=== PATIENT | male | born 1985 | race Caucasian/White ===

== ENCOUNTER 2024-02-06 01:02 | Emergency (ER) | payer MEDICAID ==
[~2024-02-06] VITALS: Ht 172.7 cm; Wt 100.0 kg
[2024-02-06 01:03] VITALS: O2SAT 97
[2024-02-06 01:30] VITALS: BP 136/75; PULSE 71; RESP 21; TEMP 97.8
[2024-02-06] MEDS: MAGNESIUM/ALUMINUM HYDROXIDE/SIMETHICONE 30ML UDC PO STA (02:03)
[2024-02-06] MEDS: FAMOTIDINE 20MG TABLET PO ONE (02:04)
[2024-02-06] MEDS ORDERED: FAMO-135 MT (03:08)
[2024-02-06] MEDS ORDERED: MAG-55 MT (03:08)
== END 2024-02-06 03:24 | disposition home or self-care (01) ==
LOC: ER 01:02
DX: K29.70 Gastritis, unspecified, without bleeding (principal)
CPT/HCPCS: 99283